=== PATIENT | female | born 1945 | race Caucasian/White ===

== ENCOUNTER 2022-10-24 12:12 | Emergency (ER) | payer MEDICARE, SELFPAY ==
[2022-10-24 12:21] VITALS: BP 128/78; PULSE 87; RESP 20; TEMP 36.8; O2SAT 99; BMI 24.0
--- NOTE | 2022-10-24 12:56 | HMH.EDGENADL ---
Discharge Plan Disposition Patient Disposition: Home, Self-Care Prescriptions Prescriptions: No Action insulin glargine [Lantus U-100 Insulin] 100 UNIT/ML Ml 0 unit SQ DAILY aspirin [Aspir-81] 81 MG Tablet.Dr 81 mg PO DAILY lisinopril 10 MG Tablet 10 mg PO DAILY metformin 500 MG Tab.Er.24h 500 mg PO DAILY Referrals Follow up/Referrals: Provider,Referral, MD [Referring] - See instructions Activity Restrictions/Add. Instructions Additional Instructions/Restrictions: At this time it was felt you are safe to be discharged home. If new or worsening symptoms please do not hesitate to return the emergency department. Please follow-up with your family doctor in 10 days for possible suture removal. Please do not submerge your hand in water, it is okay to wash your hand or shower. Clinical Impressions Clinical Impression: Finger laceration, Fall Instructions Patient Instructions: DI for Laceration Repair Discharge ED Provider: Esau Burr General Adult HPI General Chief complaint: Wound/Laceration Stated complaint: AO9/11@home, lac on Rt middle finger Time Seen by Provider: 10/24/22 12:40 Mode of Arrival: Ambulatory Source of Information: Patient Limitations: No Limitations Description of Symptoms (Recalled from ER Triage Doc. by RN): pt to ed c/o right middle finger laceration. pt states she fell at home. pt denies hitting her head. -LOC History of Present Illness HPI narrative: Patient is a 77-year-old with past medical history of insulin-dependent diabetes who presents emergency department for evaluation of traumatic injury sustained in a fall. Patient states that she became lightheaded after arising from her bed this morning walking to the kitchen falling onto her right hand cutting on an unknown object. Patient denies hitting her head. Due to the laceration over her right finger she presents here for continued evaluation. She normally takes her insulin at night. Patient denies other traumatic injuries at this time. Related Data Home Medications Medication Instructions Recorded Confirmed aspirin 81 mg tablet,delayed 81 mg PO DAILY Heart disease 05/09/18 05/09/18 release (Aspir-) insulin glargine 100 unit/mL 0 unit SQ DAILY Diabetes 05/09/18 05/09/18 subcutaneous solution (Lantus U-100 Insulin) lisinopril 10 mg tablet 10 mg PO DAILY Hypertension 05/09/18 05/09/18 metformin 500 mg tablet,extended 500 mg PO DAILY Diabetes 05/09/18 05/09/18 release 24 hr Allergies Allergy/AdvReac Type Severity Reaction Status Date / Time Penicillins Allergy Verified 05/09/18 19:41 [facility] [place] Disclaimer: The information contained in this section may have been updated after the patient was seen, as this information can be updated by other users. Social History Smoking Status: Never smoker alcohol intake: never current occupational status: disabled Travel in the last 8 weeks: None housing: house ROS Obtained: Yes Systems reviewed as appropriate & no additional complaints except as documented Physical Exam General General appearance: alert and in no apparent distress Head Head exam: atraumatic and normocephalic Eye Eye exam: Present PERRL and EOMI ENT ENT exam: Present mucous membranes moist Neck Neck exam: Present normal inspection and full ROM; Absent tenderness Chest Chest inspection: Present normal inspection and symmetric chest wall rise Respiratory Respiratory exam: Present normal lung sounds bilaterally; Absent respiratory distress Cardiovascular Cardiovascular exam: Present regular rate and normal rhythm Abdominal Exam Abdominal exam: Present soft; Absent tenderness Extremities Exam Extremities exam: Present other (Linear laceration along the ulnar aspect of the dorsal right long finger that is oozing blood. No tenderness over the bilateral upper or lower extremities. Distal capillary refill preserved right long finger. Sensation intact light
[2022-10-24 13:00] VITALS: BP 143/72
--- NOTE | 2022-10-24 13:02 | XR_ITS ---
FINAL REPORT CLINICAL HISTORY: R middle finger trauma FINDINGS: RIGHT HAND Three views demonstrate no acute fracture or dislocation. The visualized joint spaces are normally aligned. Moderate degenerative changes are noted. The soft tissues are unremarkable. IMPRESSION: No acute bony abnormality. Reviewed, Interpreted and Dictated by Jorge Benitez III, MD Transcribed by Shahrzad Hylton Authenticated and [facility]
--- NOTE | 2022-10-24 13:02 | XR_ITS ---
FINAL REPORT TECHNIQUE: Single view chest CLINICAL HISTORY: syncope COMPARISON: 05/09/2018 FINDINGS: A single view of the chest was obtained. The heart and mediastinum are within normal limits. The lungs are clear. There is no pneumothorax. Osseous structures demonstrate interval postoperative changes of the right shoulder. There are mild degenerative changes noted of the acromioclavicular joints. IMPRESSION: No acute cardiopulmonary process. Reviewed, Interpreted and Dictated by Jorge Benitez III, MD Transcribed by Shahrzad Hylton Authenticated and [facility]
--- NOTE | 2022-10-24 13:02 | ECG_ITS ---
APPROVED REPORT Exam: Resting ECG HR:83 bpm ECG Measurements Heart Rate [address] 165 P 54 QRSd 108 QRS 7 QT 370 T 92 QTc 409 Conclusion SINUS RHYTHM Late r wave progression BORDERLINE ECG UNCONFIRMED REPORT Electronically signed by : Sumanth Stewart MD 10/25/2022 17:15:34
[2022-10-24 13:30] VITALS: BP 135/68
--- NOTE | 2022-10-24 13:33 | PC.NURSE ---
FSBS: 56. Lunch tray ordered.
--- NOTE | 2022-10-24 13:35 | PC.NURSE ---
LEC put on patient finger at 1340.
--- NOTE | 2022-10-24 14:21 | PC.NURSE ---
Dr. Burr at [facility] to suture
[2022-10-24 14:45] LABS: POC Glucose,Bedside 186 (70-110)
[2022-10-24 14:45] LABS: POC Glucose,Bedside 54 (70-110)
--- NOTE | 2022-10-24 15:36 | PC.NURSE ---
did another blood glucose per ER Doctor and it was 213.
[2022-10-24 15:40] LABS: POC Glucose,Bedside 213 (70-110)
[2022-10-24 15:59] VITALS: BP 129/60; PULSE 84; RESP 20; TEMP 36.8; O2SAT 97
== END 2022-10-24 15:59 | disposition home or self-care (01) ==
PROVIDERS: Emergency Provider Emergency Medicine; PCP Family Medicine
DX: S61.212A Laceration without foreign body of right middle finger without damage to nail, initial encounter (principal); R55 Syncope and collapse; E11.9 Type 2 diabetes mellitus without complications; W01.118A Fall on same level from slipping, tripping and stumbling with subsequent striking against other sharp object, initial encounter; Z23 Encounter for immunization
CPT/HCPCS: 12002; 71045; 73130; 82962; 90715; 93005; 96372; 99285

== ENCOUNTER 2023-08-28 10:33 | Outpatient (CLI) | payer MEDICARE, SELFPAY ==
[2023-08-28 18:34] LABS: Adenovirus,PCR Not Detected (NotDetected); Bordetella Pertussis Not Detected (NotDetected); Chlamydophila Pneumoniae, PCR Not Detected (NotDetected); Coronavirus 19, PCR Not Detected (NotDetected); Coronavirus 229E Not Detected (NotDetected); Coronavirus NL63 Not Detected (NotDetected); Coronavirus OC43 Not Detected (NotDetected); Coronovirus HKU1,PCR Not Detected (NotDetected); Human Metapneumovirus Not Detected (NotDetected); Influenza A, PCR Not Detected (NotDetected); Influenza AH1, 2009 Not Detected (NotDetected); Influenza AH1, PCR Not Detected (NotDetected); Influenza AH3,PCR Not Detected (NotDetected); Influenza B, PCR Not Detected (NotDetected); Mycoplasma Pneumoniae, PCR Not Detected (NotDetected); Parainfluenza 1, PCR Not Detected (NotDetected); Parainfluenza 2, PCR Not Detected (NotDetected); Parainfluenza 3, PCR Not Detected (NotDetected); Parainfluenza 4, PCR Not Detected (NotDetected); Respiratory Syncytial Virus Not Detected (NotDetected); Rhinovirus/Enterovirus Not Detected (NotDetected)
== END 2023-08-28 23:59 | disposition home or self-care (01) ==
LOC: LAB.DROPOF 08-29 10:33
PROVIDERS: PCP Nurse Practitioner; Visit Provider Nurse Practitioner
DX: J06.9 Acute upper respiratory infection, unspecified (principal); Z72.0 Tobacco use
CPT/HCPCS: 87581; 87632; 87635; 87798